=== PATIENT | female | born 1985 | race African-American/Black ===

== ENCOUNTER 2017-12-21 14:04 | Emergency (ER) | payer BC, OTHER ==
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
[2017-12-21] MEDS ORDERED: MOTRIN PO ONE (16:31)
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
[2017-12-21 18:44] VITALS: BP 119/66
== END 2017-12-21 18:45 | disposition home or self-care (01) ==
LOC: ED 14:04
DX: S13.4XXA Sprain of ligaments of cervical spine, initial encounter (principal); S39.012A Strain of muscle, fascia and tendon of lower back, initial encounter; Z91.018 Allergy to other foods; V89.2XXA Person injured in unspecified motor-vehicle accident, traffic, initial encounter; Y93.89 Activity, other specified; Y92.89 Other specified places as the place of occurrence of the external cause; Y99.8 Other external cause status
CPT/HCPCS: 72040; 72100; 99284